=== PATIENT | female | born 1945 | race Caucasian/White ===

== ENCOUNTER 2019-08-26 18:28 | Emergency (ER) | payer BC, OTHER ==
[~2019-08-26] VITALS: Ht 170.2 cm; Wt 58.1 kg
[~2019-08-26 18:28] MED LIST: ADVAIR 250-501 EACH PO; ALENDRONATE SOD35 MG PO; FLUTICASONE PO; LEVOTHYROXINE175 MCG PO; OMEPRAZOLE20 M1 PO; ZOCOR20 MG PO
[2019-08-26] MEDS ORDERED: TETANUS/DIPHTHERIA TOX ADULT 0.5 ML SYR IM ONE (19:00)
[2019-08-26] MEDS ORDERED: TETANUS/DIPHTHERIA TOX ADULT 0.5 ML SYR ONE (19:09)
--- NOTE | 2019-08-26 19:57 | Diagnostic Imaging Report ---
X-ray left hand 3 views HISTORY: Pain. COMPARISON: None available. FINDINGS: Bones/joints: No acute displaced fracture. 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 Additional scattered mild degenerative changes. Mild ulnar sided angulation of the third digit middle phalanx in relation to the proximal interphalangeal joint. Soft tissues: Scattered areas of soft tissue swelling, worse in the first and third digit. IMPRESSION: Scattered areas of soft tissue swelling with questionable articular injury of the first and third digit proximal interphalangeal joints. Scattered degenerative changes as above. No definitive fracture is identified. Signed by: Jhon Silva DO on 08/26/2019 7:54 PM
--- NOTE | 2019-08-26 21:30 | NUR ---
ANIMAL CONTROL NOTIFED PER POLICY MESSAGE LEFT.
== END 2019-08-26 20:00 | disposition home or self-care (01) ==
LOC: FSED 18:28
DX: S60.473A Other superficial bite of left middle finger, initial encounter (principal); W55.01XA Bitten by cat, initial encounter
CPT/HCPCS: 90471; 90714; 99283

== ENCOUNTER 2022-06-12 14:16 | Emergency (ER) | payer BC, OTHER ==
[~2022-06-12] VITALS: Ht 165.1 cm; Wt 65.8 kg
[2022-06-12] MEDS ORDERED: PREDNISONE20 MG PO (14:59)
[2022-06-12] MEDS ORDERED: NYSTATIN100000 UNI PO (15:00)
[2022-06-12] MEDS ORDERED: DIFLUCAN100 MG PO (15:00)
== END 2022-06-12 15:11 | disposition home or self-care (01) ==
LOC: FSED 14:58
DX: K12.30 Oral mucositis (ulcerative), unspecified (principal); I10 Essential (primary) hypertension; J44.9 Chronic obstructive pulmonary disease, unspecified; E78.5 Hyperlipidemia, unspecified; J45.909 Unspecified asthma, uncomplicated; K21.9 Gastro-esophageal reflux disease without esophagitis; Z86.73 Personal history of transient ischemic attack (TIA), and cerebral infarction without residual deficits
CPT/HCPCS: 99282

== ENCOUNTER 2024-12-25 15:22 | Inpatient (IN) | payer BC, MEDICARE ==
[~2024-12-25] VITALS: Ht 162.6 cm; Wt 77.6 kg
[~2024-12-25 15:22] MED LIST changes: +DIFLUCAN100 MG PO; +NYSTATIN100000 UNI PO; +PREDNISONE20 MG PO
[2024-12-25 15:30] VITALS: TEMP 98.4
[2024-12-25] MEDS: SODIUM CHLORIDE 0.9% 1000ML 1,000 ML IV STA ×2 (16:00→19:43)
[2024-12-25] MEDS ORDERED: IOPAMIDOL 370 MG/ML 100 ML INFUS..BTL INJ ONE (17:56)
[2024-12-25] MEDS ORDERED: Morphine 4mg INJECTION 4 MG/ML INJ IV PRN (18:00)
[2024-12-25 18:49] VITALS: PULSE 94; RESP 18
[2024-12-25 18:58] VITALS: BP 96/50; PULSE 91; RESP 20; TEMP 98.1; O2SAT 93
[2024-12-25] MEDS: SODIUM CHLORIDE 0.9% 1000ML 1,000 ML IV SCH (20:06)
[2024-12-25 20:50] VITALS: BP 96/50; PULSE 91; RESP 20; TEMP 98.1; O2SAT 93
[2024-12-25 20:52] VITALS: PULSE 91; RESP 18; O2SAT 93
[2024-12-25] MEDS ORDERED: LEVOTHYROXINE125 MCG PO (21:05)
[2024-12-25] MEDS ORDERED: ULTRAM 50MG50 MG PO (21:05)
[2024-12-25] MEDS ORDERED: AIRSUPRA 90-810.7 GM INH (21:05)
[2024-12-25] MEDS ORDERED: PREDNISOLONE ACE5 M1 OU (21:05)
[2024-12-25] MEDS ORDERED: KETOROLAC TROMET5 ML OU (21:05)
[2024-12-25] MEDS ORDERED: FLUTICASONE-SA1 EAC1 INH (21:05)
[2024-12-25] MEDS ORDERED: ATORVASTATIN CA20 MG PO (21:05)
[2024-12-25] MEDS ORDERED: ONDANSETRON HCL8 MG PO (21:05)
[2024-12-25 23:30] VITALS: PULSE 97; RESP 18; O2SAT 97
[2024-12-26] VITALS (10 sets, daily range): BP systolic 107–132; BP diastolic 56–71; PULSE 85–108; RESP 17–20; TEMP 97.5–98.5; O2SAT 93–100
[2024-12-26] MEDS: ALBUTEROL/IPRATROPIUM 3 ML NEB NEB PRN (04:33)
[2024-12-26 06:44] LABS: BASOPHILS # (AUTO) 0.1 (0.0-0.1); BASOPHILS % 0.3 % (0.0-1.0); EOSINOPHILS # (AUTO) 0.3 (0.0-0.4); EOSINOPHILS % 1.3 % (0.0-6.0); HEMATOCRIT 31.4 % (34.2-44.1); HEMOGLOBIN 9.6 g/dL (12.0-16.0); LYMPHOCYTES # (AUTO) 1.8 (1.0-3.2); MEAN CORPUSCULAR HEMOGLOBIN 31.6 pg (28-32); MEAN CORPUSCULAR HGB CONC 30.6 g/dL (31-35); MEAN CORPUSCULAR VOLUME 103.3 fL (81-99); MONOCYTES # (AUTO) 2.5 (0.2-0.8); MONOCYTES % 11.1 % (4.4-11.3); NEUTROPHILS # (AUTO) 17.1 (2.1-6.9); NEUTROPHILS % 76.9 % (38.7-80.0); PLATELET COUNT 321 x10e3/uL (140-360); RED BLOOD COUNT 3.04 x10e6/uL (3.6-5.1); RED CELL DISTRIBUTION WIDTH 21.2 % (11.7-14.4); WHITE BLOOD COUNT 22.19 x10e3/uL (4.8-10.8)
[2024-12-26 07:07] LABS: ALBUMIN 2.7 g/dL (3.5-5.0); BILIRUBIN,TOTAL 0.7 mg/dL (0.2-1.2); CALCIUM 8.1 mg/dL (8.4-10.2); CREATININE, SERUM 1.13 mg/dL (0.57-1.11); TOTAL PROTEIN 5.4 g/dL (6.5-8.1)
[2024-12-26 07:27] LABS: TROPONIN I 0.025 ng/mL (0-0.300)
[2024-12-26] MEDS: ONDANSETRON HCL INJ 2MG/ML 2ML 2 MG/ML VIAL IV PRN (09:03)
[2024-12-26] MEDS ORDERED: BENZONATATE 100 MG CAP PO PRN (11:15)
[2024-12-26] MEDS ORDERED: ACETAMINOPHEN 325 MG TAB PO PRN (11:15)
[2024-12-26] MEDS ORDERED: HYDRALAZINE HCL 20 MG/ML VIAL IV PRN (11:15)
[2024-12-26] MEDS ORDERED: DEXTROSE 50% SYRINGE 50 ML IV PRN (11:15)
[2024-12-26] MEDS ORDERED: LIDOCAINE 4% PATCH TP PRN (11:15)
[2024-12-26] MEDS ORDERED: ALBUTEROL/IPRATROPIUM 3 ML NEB NEB PRN (11:15)
[2024-12-26] MEDS ORDERED: DOCUSATE SODIUM 100 MG CAP PO PRN (11:15)
[2024-12-26] MEDS ORDERED: SIMETHICONE 80 MG CHEW PO PRN (11:15)
[2024-12-26] MEDS ORDERED: MELATONIN 5 MG TABLET PO PRN (11:15)
[2024-12-26] MEDS ORDERED: DIPHENHYDRAMINE HCL 25 MG CAP PO PRN (11:15)
[2024-12-26] MEDS ORDERED: SALMETEROL XINAF/FLUTICASONE 250/50 MCG INHALER INH SCH (11:15)
[2024-12-26] MEDS ORDERED: POTASSIUM CHLORIDE 20 MEQ TAB CR PO PRN (11:15)
[2024-12-26] MEDS ORDERED: PEPCID20 MG PO (11:35)
[2024-12-26] MEDS ORDERED: PREDNISOLONE ACE5 M1 OP (11:37)
[2024-12-26 11:39] LABS: TROPONIN I 0.021 ng/mL (0-0.300)
[2024-12-26] MEDS ORDERED: TRAMADOL HCL 50 MG TAB PO PRN (14:30)
[2024-12-26] MEDS: ENOXAPARIN SOD INJ 40 MG/0.4 ML SYR SC SCH (16:42)
[2024-12-26] MEDS: SALMETEROL XINAF/FLUTICASONE 250/50 MCG INHALER INH SCH (17:09)
[2024-12-26] MEDS: KETOROLAC TROMETHAMINE 0.5% OP SOLN 3 ML BTL OU SCH (17:09)
[2024-12-26] MEDS ORDERED: ATORVASTATIN 20 MG TAB PO SCH (21:00)
[2024-12-26] MEDS: FAMOTIDINE 20 MG TAB PO SCH (22:15)
[2024-12-27 03:56] VITALS: BP 137/74; PULSE 93; RESP 18; TEMP 98.1; O2SAT 98
[2024-12-27] MEDS: LEVOTHYROXINE SODIUM 125 MCG TAB PO SCH (05:52)
[2024-12-27 06:38] VITALS: PULSE 90; RESP 18; O2SAT 93
[2024-12-27 06:45] LABS: BASOPHILS # (AUTO) 0.1 (0.0-0.1); BASOPHILS % 0.4 % (0.0-1.0); EOSINOPHILS # (AUTO) 0.3 (0.0-0.4); EOSINOPHILS % 1.4 % (0.0-6.0); HEMOGLOBIN 9.5 g/dL (12.0-16.0); LYMPHOCYTES # (AUTO) 1.4 (1.0-3.2); LYMPHOCYTES % 7.2 % (18.0-39.1); MEAN CORPUSCULAR HEMOGLOBIN 31.3 pg (28-32); MEAN CORPUSCULAR HGB CONC 31.7 g/dL (31-35); MEAN CORPUSCULAR VOLUME 98.7 fL (81-99); MONOCYTES # (AUTO) 1.9 (0.2-0.8); MONOCYTES % 9.4 % (4.4-11.3); NEUTROPHILS % 79.5 % (38.7-80.0); PLATELET COUNT 409 x10e3/uL (140-360); RED BLOOD COUNT 3.04 x10e6/uL (3.6-5.1); RED CELL DISTRIBUTION WIDTH 20.8 % (11.7-14.4)
[2024-12-27 07:21] LABS: ALBUMIN 2.8 g/dL (3.5-5.0); ALBUMIN/GLOBULIN RATIO 1.1 (0.8-2.0); ANION GAP 14.7 mmol/L (8-16); BILIRUBIN,TOTAL 0.6 mg/dL (0.2-1.2); CALCIUM 8.1 mg/dL (8.4-10.2); CREATININE, SERUM 1.03 mg/dL (0.57-1.11); POTASSIUM 3.7 mmol/L (3.5-5.1); TOTAL PROTEIN 5.3 g/dL (6.5-8.1)
[2024-12-27 07:45] VITALS: BP 127/64; PULSE 88; RESP 18; TEMP 97.9; O2SAT 97
[2024-12-27 08:10] VITALS: BP 127/64; PULSE 88; RESP 18; TEMP 97.9; O2SAT 97
[2024-12-27] MEDS: PANTOPRAZOLE SOD 40 MG TABEC PO SCH (09:02)
[2024-12-27 12:06] VITALS: BP 109/58; PULSE 91; RESP 18; TEMP 97.7; O2SAT 96
== END 2024-12-27 16:45 | disposition home or self-care (01) | DRG 194 ==
LOC: FSED 15:45 → ERHOLD 18:03 → MED/SURG3 19:14
PROVIDERS: ADMIT Internal Medicine; ATTEND Internal Medicine
DX: J18.9 Pneumonia, unspecified organism (principal); C22.1 Intrahepatic bile duct carcinoma; D84.821 Immunodeficiency due to drugs; N17.9 Acute kidney failure, unspecified; R91.1 Solitary pulmonary nodule; R74.8 Abnormal levels of other serum enzymes; D50.9 Iron deficiency anemia, unspecified; I10 Essential (primary) hypertension; J44.9 Chronic obstructive pulmonary disease, unspecified; K21.9 Gastro-esophageal reflux disease without esophagitis; E78.5 Hyperlipidemia, unspecified; E86.0 Dehydration; R74.01 Elevation of levels of liver transaminase levels; E03.9 Hypothyroidism, unspecified; Z11.52 Encounter for screening for COVID-19; Z79.51 Long term (current) use of inhaled steroids; Z79.890 Hormone replacement therapy; Z86.73 Personal history of transient ischemic attack (TIA), and cerebral infarction without residual deficits; Z90.49 Acquired absence of other specified parts of digestive tract; Z90.710 Acquired absence of both cervix and uterus; Z88.5 Allergy status to narcotic agent
CPT/HCPCS: 0223U; 36415; 70450; 71260; 74177; 80053; 80076; 81003; 82550; 83518; 84484; 85025; 87040; 87400; 93005; 94799; 99252; 99284; J2405; J2470; J2543; J7030; Q9967